=== PATIENT | female | born 1945 | race Two or more races ===

== ENCOUNTER 2021-07-24 18:20 | Emergency (ER) | payer BC, MEDICAID, MEDICARE ==
[~2021-07-24] VITALS: Ht 154.9 cm; Wt 63.5 kg
[2021-07-24] MEDS ORDERED: IBUPROFEN 600 MG TAB PO ONE (18:45)
[2021-07-24 20:59] LABS: Urine Amorphous Crystal FEW /hpf (None Seen); Urine Bacteria FEW /hpf (None Seen); Urine Blood Negative /uL (Negative); Urine Mucus MANY (None Seen); Urine Specific Gravity 1.029 (1.001-1.035); Urine WBC 161 /hpf (0 - 5)
[2021-07-24] MEDS ORDERED: OXYCODONE W/ ACETAMINOPHEN 5/325MG TABLET PO ONE (21:00)
[2021-07-24 22:30] VITALS: BP 136/73
== END 2021-07-24 22:45 | disposition home or self-care (01) ==
LOC: EDBD 18:20 → ER 18:20
DX: S33.5XXA Sprain of ligaments of lumbar spine, initial encounter (principal); M79.18 Myalgia, other site; W01.0XXA Fall on same level from slipping, tripping and stumbling without subsequent striking against object, initial encounter; Y93.89 Activity, other specified; Y92.89 Other specified places as the place of occurrence of the external cause; Y99.8 Other external cause status
CPT/HCPCS: 71045; 72128; 72131; 72170; 73030; 81001; 93005